=== PATIENT | male | born 1955 | race African-American/Black ===

== ENCOUNTER 2020-11-30 17:37 | Emergency (ER) | payer MEDICARE, OTHER | END 2020-11-30 19:26 | disposition home or self-care (01) | LOC: CSHERS 17:37 | DX: L03.115 Cellulitis of right lower limb (principal); E78.5 Hyperlipidemia, unspecified; I10 Essential (primary) hypertension; M19.90 Unspecified osteoarthritis, unspecified site; G62.9 Polyneuropathy, unspecified; Z86.73 Personal history of transient ischemic attack (TIA), and cerebral infarction without residual deficits ==